=== PATIENT | male | born 1990 | race African-American/Black ===

== ENCOUNTER 2016-11-01 13:44 | Emergency (ER) | payer SELFPAY ==
[~2016-11-01] VITALS: Ht 177.8 cm; Wt 80.0 kg
--- NOTE | 2016-11-01 13:47 | PD ---
Physical Exam Time Seen by Provider: 13:47 Narrative 26 y/o male here with pain to R great toe after dropping a 45 pound weight on it. Vital signs reviewed. Seen at triage desk. Awaiting bed placement. [facility] Medical Record Reviewed: Yes Supervised Visit with LISA: No Scripts No Active Prescriptions or Reported Meds Tono Izquierdo Nov 01, 2016 13:47
--- NOTE | 2016-11-01 14:21 | RADRPT ---
EXAM DATE/TIME: 11/01/2016 14:13 [place] COMPARISON: FINGER LEFT 2ND DIGIT ([id number]), November 06, 2014, 4:08. INDICATIONS : Right distal 1st toe bleeding. Patient dropped a 25 pound weight on the right great toe. MEDICAL HISTORY : None. SURGICAL HISTORY : None. ENCOUNTER: Initial ACUITY: 1 day PAIN SCORE: 8/10 LOCATION: Right distal 1st digit. FINDINGS: The examination demonstrates a comminuted fracture of the distal tuft of the right toe. There are caio e small bone fragments which are broken off the distalmost aspect of the toe. There is diffuse soft t issue swelling and a soft tissue defect.. The remainder the osseous structures are intact. CONCLUSION: 1. There are some small bone fragments which are fractured off the distal aspect of the tuft of the f irst digit. 2. Soft tissue laceration Eitan Quintero MD on November 01, 2016 at 14:18 Board Certified Radiologist. This report was verified electronically.
--- NOTE | 2016-11-01 15:31 | PD ---
HPI Chief Complaint: Injury Time Seen by Provider: 15:29 Travel History International Travel<30 days: No Contact w/Intl Traveler<30days: No Traveled to known affect area: No History of Present Illness HPI 26-year-old male presents emergency Department with complaint of right great toe pain and laceration after dropping a 45 pound weight on his toe today. Denies paresthesias, loss of sensation. Denies being up-to-date on his tetanus vaccination. Has not taken any medications to alleviate his symptoms. Has applied a bandage and bleeding is controlled. Has no medical complaints. No known allergies. No other modifying factors or associated signs and symptoms. PFSH Social History Alcohol Use: No Tobacco Use: No Substance Use: No Allergies-Medications (Allergen,Severity, Reaction): Coded Allergies: No Known Allergies (Unverified , 02/27/15) Reported Meds & Prescriptions Reported Meds & Active Scripts Active Lortab (Hydrocodone-Acetaminophen) 5-325 Mg Tab 1-2 Tab PO Q6H PRN Ibuprofen 800 Mg Tab 800 Mg PO Q6HR PRN Keflex (Cephalexin) 500 Mg Cap 500 Mg PO Q6H 10 Days Review of Systems Except as stated in HPI: all other systems reviewed are Neg Physical Exam Narrative GENERAL: Well-nourished, well-developed black male patient, in no acute distress SKIN: Warm and dry. Approximately one and half centimeter laceration to the distal aspect of the right great toe; bleeding controlled. Skin Laceration to the base of the nailbed with partial nail avulsion noted. Right toe is with tenderness on palpation and mildly edematous; without erythema or ecchymosis; no obvious deformity; sensory intact; less than 3 second cap refill. HEAD: Atraumatic. Normocephalic. EYES: Pupils equal and round. No scleral icterus. No injection or drainage. ENT: Mucosa pink and moist. Airway patent. NECK: Trachea midline. CARDIOVASCULAR: Regular rate. RESPIRATORY: No accessory muscle use. GASTROINTESTINAL: Flat. MUSCULOSKELETAL: No obvious deformities. No clubbing. No cyanosis. No edema. NEUROLOGICAL: Awake and alert. Oriented 3. No obvious cranial nerve deficits. Motor grossly within normal limits. Normal speech. PSYCHIATRIC: Appropriate mood and affect; insight and judgment normal. Data Data Last Documented VS Vital Signs Date Time Temp Pulse Resp B/P (MAP) Pulse Ox O2 Delivery O2 Flow Rate FiO2 11/01/16 17:40 16 Orders Orders Toe (Min 2vws) (11/01/16 ) Cefazolin Inj (Ancef Inj) (11/01/16 15:45) Lidocaine 1% Inj (50 Ml) (Xylocaine 1% I (11/01/16 15:45) Bupivacaine Pf 0.5% Inj (Marcaine Pf 0.5 (11/01/16 15:45) Tetanus/Diphtheria Tox Adult (Tetanus/Di (11/01/16 15:45) Iv Access Insert/Monitor (11/01/16 15:31) Sodium Chloride 0.9% Flush (Ns Flush) (11/01/16 15:45) Splint Or Brace Apply/Monitor (11/01/16 15:31) Crutches (11/01/16 15:31) Mandatory Outpatient Referral (11/01/16 15:42) Acetamin-Hydrocod 325-5 Mg ([place] 5-325 (11/01/16 15:45) Shoe Cast (11/01/16 ) MDM Medical Decision Making Medical Screen Exam Complete: Yes Emergency Medical Condition: Yes Medical Record Reviewed: Yes Differential Diagnosis Laceration, contusion, abrasion, fracture Narrative Course 26-year-old male with right great toe injury and open wound after dropping a 45 pound weight on it. Tetanus updated in the ER. Lortab administered in the ER. Ancef 1 g administered in the ER. 1530: X-ray concludes: Last 24 hours Impressions Toe X-Ray 11/01/16 0000 Signed Impressions: Service Date/Time: Tuesday, November 01, 2016 14:13 - CONCLUSION: 1. There are some small bone fragments which are fractured off the distal aspect of the tuft of the first digit. 2. Soft tissue laceration MD Tabitha Power repaired the laceration; see her procedure note for laceration repair. Mandatory outpatient referral ordered for recommended follow-up with podiatry. Keflex, ibuprofen, Lortab prescribed for home. Wound care provided. Postop shoe provided for support. Crutches provided for support. Instructed patient to follow up with podiatry within 1-2 days. Information for on-call manager post provided to the patient. Patient verbalizes understanding and agreement. Instructed patient to follow up with primary care provider. Patient verbalizes understanding and agreement with treatment plan. Patient is medically cleared and stable for discharge. Discussed reasons to return to the emergency department. Patient agrees with treatment plan. The patients vital signs are stable and the patient is stable for outpatient follow-up and treatment. Patient discharged home, stable and in no acute distress. Diagnosis Primary Impression: Open toe fracture Qualified Codes: S92.424B - Nondisplaced fracture of distal phalanx of right great toe, initial encounter for open fracture Additional Impression: Avulsion of toenail of right foot Referrals: Paola Hummel DPM Head Transfer Clerk Primary Care Physician Patient Instructions: Care For Your Stitches (ED), General Instructions, Laceration (ED), Nail Avulsion (ED), Toe Fracture (ED) Departure Forms: School Release, Return to School Date: Nov 03, 2016 Tests/Procedures, Work Release Enter return to work date: Nov 08, 2016 Additional Instructions: Ibuprofen or Tylenol instructed for pain and information Antibiotics as prescribed Postop shoe for support Crutches for support Follow-up with podiatry; a mandatory outpatient referral has been ordered free to follow up outpatient with Dr. Hummel, manager post; you may call the office and make an appointment Follow-up with primary care provider Return to the emergency department immediately if worsening of symptoms Med/Other Pt SpecificInfo: Prescription(s) given Scripts Hydrocodone-Acetaminophen (Lortab) 5-325 Mg Tab 1-2 TAB PO Q6H Y for PAIN, #20 TAB 0 Refills Prov: Lavinia Auguste 11/01/16 Ibuprofen (Ibuprofen) 800 Mg Tab 800 MG PO Q6HR Y for PAIN, #30 TAB 0 Refills Prov: Lavinia Auguste 11/01/16 Cephalexin (Keflex) 500 Mg Cap 500 MG PO Q6H for Infection for 10 Days, #40 CAP 0 Refills Prov: Lavinia Auguste 11/01/16 Disposition: 01 DISCHARGE HOME Condition: Stable Lavinia Auguste Nov 01, 2016 15:31
[2016-11-01] MEDS ORDERED: HYDR-3533 PO (15:42)
[2016-11-01] MEDS ORDERED: IBUP800T23 PO (15:42)
[2016-11-01] MEDS ORDERED: CEPH-460 PO (15:42)
[2016-11-01] MEDS ORDERED: BUPIVACAINE HCL PF 0.5% 10 ML VIAL INFIL ONE (15:45)
[2016-11-01] MEDS ORDERED: SODIUM CHLORIDE 0.9% FLUSH 10 ML FLUSH IV FLUSH PRN (15:45)
[2016-11-01] MEDS ORDERED: LIDOCAINE HCL 1% 50 ML VIAL INFIL ONE (15:45)
[2016-11-01] MEDS ORDERED: TETANUS/DIPHTHERIA TOXOID ADULT 0.5 ML VIAL IM ONE (15:45)
[2016-11-01] MEDS ORDERED: ACETAMINOPHEN/HYDROcodone 325 MG/5 MG TAB PO ONE (15:45)
--- NOTE | 2016-11-01 16:34 | PD ---
Physical Exam Date Seen by Provider: Nov 01, 2016 Time Seen by Provider: 16:21 Data Data Last Documented VS Vital Signs Date Time Temp Pulse Resp B/P (MAP) Pulse Ox O2 Delivery O2 Flow Rate FiO2 11/01/16 17:40 16 Orders Orders Toe (Min 2vws) (11/01/16 ) Cefazolin Inj (Ancef Inj) (11/01/16 15:45) Lidocaine 1% Inj (50 Ml) (Xylocaine 1% I (11/01/16 15:45) Bupivacaine Pf 0.5% Inj (Marcaine Pf 0.5 (11/01/16 15:45) Tetanus/Diphtheria Tox Adult (Tetanus/Di (11/01/16 15:45) Iv Access Insert/Monitor (11/01/16 15:31) Sodium Chloride 0.9% Flush (Ns Flush) (11/01/16 15:45) Splint Or Brace Apply/Monitor (11/01/16 15:31) Crutches (11/01/16 15:31) Mandatory Outpatient Referral (11/01/16 15:42) Acetamin-Hydrocod 325-5 Mg ([place] 5-325 (11/01/16 15:45) Shoe Cast (11/01/16 ) MDM Medical Record Reviewed: Yes Supervised Visit with LISA: Yes Narrative Course Well-nourished well-developed 26-year-old male that appears to be anxious. I was asked by provider, JENNIFER Murcia to repair lacerations to right great toe that was sustained after patient dropped a 45 pound dumbbell on the toe. The lacerations were repaired. Please see my procedural narrative for details. Procedures Procedure Narrative LACERATION LOCATION: Distal anterior portion of right great toe LENGTH: 2 cm NUMBER OF STITCHES/GEGE: 4x 4. 0 Prolene REPAIR: The area of the laceration was prepped with Betadine and sterilely draped. A digital block was performed to the right great toe using a mixture of 1% lidocaine and 0.5% bupivacaine. The wound was copiously irrigated and explored without evidence of foreign body, tendon injury or neurovascular injury. The wound was closed using 4 sutures of 4.0 Prolene. This was a single layer repair. A sterile dressing was applied. The patient was advised to keep the dressing clean and dry. Patient tolerated the procedure well. LACERATION LOCATION: Right great toe on the nail bed inferior to the toenail LENGTH: 3 cm NUMBER OF STITCHES/GEGE: 5x 4.0 Vicryl REPAIR: The right great toenail was partially removed during the trauma. The remaining portion was removed to allow access to the laceration. The area of the laceration was prepped with Betadine and sterilely draped. A digital block was performed to the right great toe with a mixture of 1% lidocaine and 0.5% bupivacaine. The wound was copiously irrigated and explored without evidence of foreign body, tendon injury or neurovascular injury. The wound was closed using 5 sutures of 4. 0 Vicryl. This was a single layer repair. The nail was reattached after soaking in sterile saline. The nail bed was held in place using 4 sutures of 4.0 Prolene. A sterile dressing was applied. The patient was advised to keep the dressing clean and dry. Patient tolerated the procedure well. Diagnosis Primary Impression: Open toe fracture Qualified Codes: S92.424B - Nondisplaced fracture of distal phalanx of right great toe, initial encounter for open fracture Referrals: Paola Hummel DPM Spinning And Winding Supervisor Primary Care Physician Patient Instructions: General Instructions, Care For Your Stitches (ED), Laceration (ED), Toe Fracture (ED) Additional Instruction: Ibuprofen or Tylenol instructed for pain and information Antibiotics as prescribed Postop shoe for support Crutches for support Follow-up with podiatry; a mandatory outpatient referral has been ordered free to follow up outpatient with Dr. Hummel, duct installer; you may call the office and make an appointment Follow-up with primary care provider Return to the emergency department immediately if worsening of symptoms Scripts Hydrocodone-Acetaminophen (Lortab) 5-325 Mg Tab 1-2 TAB PO Q6H Y for PAIN, #20 TAB 0 Refills Prov: Lavinia AugusteP 11/01/16 Ibuprofen (Ibuprofen) 800 Mg Tab 800 MG PO Q6HR Y for PAIN, #30 TAB 0 Refills Prov: Lavinia AugusteP 11/01/16 Cephalexin (Keflex) 500 Mg Cap 500 MG PO Q6H for Infection for 10 Days, #40 CAP 0 Refills Prov: Lavinia AugusteP 11/01/16 Disposition: 01 DISCHARGE HOME Condition: Stable Tabitha March Nov 01, 2016 16:34
[2016-11-01 17:40] VITALS: RESP 16
== END 2016-11-01 18:01 | disposition home or self-care (01) ==
LOC: NEPD 13:44
DX: S92.421B Displaced fracture of distal phalanx of right great toe, initial encounter for open fracture (principal); W22.8XXA Striking against or struck by other objects, initial encounter; Z23 Encounter for immunization
CPT/HCPCS: 11760; 12001; 64450; 73660; 90471; 96365; 99284; E0113; J0690; L3260